=== PATIENT | female | born 2000 | race Two or more races ===

== ENCOUNTER 2020-03-26 20:45 | Observation (INO) | payer OTHER ==
[~2020-03-26] VITALS: Ht 162.6 cm; Wt 112.0 kg
== END 2020-03-26 22:15 | disposition home or self-care (01) ==
LOC: MLD 20:45
PROVIDERS: ADMIT Obstetrics & Gynecology; ATTEND Obstetrics & Gynecology
DX: O23.593 Infection of other part of genital tract in pregnancy, third trimester (principal); N89.8 Other specified noninflammatory disorders of vagina; Z3A.30 30 weeks gestation of pregnancy
CPT/HCPCS: 59025; 81000; G0378

== ENCOUNTER 2021-09-22 20:58 | Emergency (ER) | payer OTHER ==
[~2021-09-22] VITALS: Ht 162.6 cm; Wt 108.4 kg
[2021-09-22 21:06] VITALS: BP 123/63
--- NOTE | 2021-09-22 21:14 | NUR ---
COVID-19 and fluy swabs collected and sent to lab.
--- NOTE | 2021-09-22 22:54 | NUR ---
Dr. Vega explained results and treatment plans.
[2021-09-22] MEDS ORDERED: NAPR-54 PO (23:16)
[2021-09-22] MEDS ORDERED: ACET-10509 PO (23:16)
[2021-09-22] MEDS ORDERED: TAM75 PO (23:16)
[2021-09-22 23:24] VITALS: BP 118/87
--- NOTE | 2021-09-22 23:24 | NUR ---
Patient discharged with v/s stable. Written and verbal after care instructions given and explained. Patient alert, oriented and verbalized understanding of instructions. Ambulatory with steady gait. All questions addressed prior to discharge. ID band removed. Patient advised to follow up with PMD. Rx of TYLENOL , NAPROSYN, TAMIFLU given.Opportunity to ask questions provided and answered.
== END 2021-09-22 23:24 | disposition home or self-care (01) ==
LOC: MED 20:58
DX: J11.1 Influenza due to unidentified influenza virus with other respiratory manifestations (principal); Z20.822 Contact with and (suspected) exposure to COVID-19; Z79.899 Other long term (current) drug therapy
CPT/HCPCS: 99283

== ENCOUNTER 2022-03-31 23:41 | Emergency (ER) | payer MEDICAID, OTHER ==
[~2022-03-31] VITALS: Ht 165.1 cm; Wt 104.3 kg
[~2022-03-31 23:41] MED LIST: ACET-10509 PO; NAPR-54 PO; TAM75 PO
[2022-04-01 00:08] VITALS: BP 109/63
--- NOTE | 2022-04-01 00:17 | NUR ---
COVID-19 and flu swabs collected and sent to lab.
--- NOTE | 2022-04-01 05:17 | NUR ---
Patient taken to bed 5
--- NOTE | 2022-04-01 05:17 | NUR ---
PT WALKED TO BED 5.
--- NOTE | 2022-04-01 05:22 | NUR ---
Dr. Vega examining patient.
[2022-04-01] MEDS ORDERED: ONDA-188 PO (05:28)
[2022-04-01 05:39] VITALS: BP 115/63
== END 2022-04-01 05:39 | disposition home or self-care (01) ==
LOC: MED 23:41
DX: R11.2 Nausea with vomiting, unspecified (principal); Z20.822 Contact with and (suspected) exposure to COVID-19; Z79.899 Other long term (current) drug therapy
CPT/HCPCS: 99283

== ENCOUNTER 2023-04-22 13:46 | Emergency (ER) | payer MEDICAID, OTHER ==
[~2023-04-22] VITALS: Ht 165.1 cm; Wt 108.9 kg
[~2023-04-22 13:46] MED LIST changes: +ONDA-188 PO
[2023-04-22 13:51] VITALS: BP 134/84; PULSE 93; RESP 18; TEMP 97.6; O2SAT 99
[2023-04-22] MEDS ORDERED: LIDOCAINE MPF 1% 10 MG/ML VIAL INJ ONE (14:20)
[2023-04-22] MEDS ORDERED: ACETAMINOPHEN EXTRA STRENGTH 500 MG TAB PO ONE (14:20)
[2023-04-22] MEDS ORDERED: ACET-10509 PO (15:30)
[2023-04-22] MEDS ORDERED: LIDOCAINE MPF 1% 5 ML ONE (16:26)
[2023-04-22] MEDS ORDERED: ACETAMINOPHEN EXTRA STRENGTH 500 MG TAB ONE (16:26)
== END 2023-04-22 16:58 | disposition home or self-care (01) ==
LOC: MED 13:46
DX: O9A.211 Injury, poisoning and certain other consequences of external causes complicating pregnancy, first trimester (principal); S61.215A Laceration without foreign body of left ring finger without damage to nail, initial encounter; Z3A.12 12 weeks gestation of pregnancy; W26.8XXA Contact with other sharp object(s), not elsewhere classified, initial encounter; Y93.89 Activity, other specified; Y92.89 Other specified places as the place of occurrence of the external cause; Y99.8 Other external cause status
CPT/HCPCS: 12001; 90471; 90715; 99283; J2001